=== PATIENT | male | born 1980 | race Asian ===

== ENCOUNTER → 2021-06-04 14:44 | Outpatient (CLI) | payer OTHER, MEDICAID, SELFPAY ==
--- NOTE | 2021-06-04 14:47 | DI.MRI.S_ITS ---
PROCEDURE: MR HEAD/BRAIN WO/W CON INDICATIONS: See's palsy TECHNIQUE: Noncontrast sagittal T1 spin echo, axial T2 fast spin echo, axial FLAIR, axial gradient echo, axial diffusion and ADC through the brain. Axial/sagittal/coronal 3-D CISS, thin-slice axial T1 spin echo with fat saturation through the skull base. After the administration of contrast, axial and coronal thin-slice T1 spin echo with fat saturation through the skull base, axial T1 spin echo with fat saturation through the brain. COMPARISON: None. FINDINGS: Image quality: Excellent. Cranial nerves: There is a roughly 3 mm diameter ovoid region enhancement within the lateral aspect of the right internal auditory canal. Additionally, there is a roughly 3 mm diameter focus of enhancement within the expected location of the labyrinthine segment as well as the geniculate ganglion on the right. Left internal auditory canal and facial nerve enhancement is within normal limits. CSF spaces: Ventricles are normal in size and shape. No extra-axial fluid collections. Basal cisterns are patent. Brain: No intracranial bleeds or mass effects. There are a few scattered punctate foci of elevated FLAIR signal within the subcortical white matter of the bilateral frontal and parietal lobes. No abnormal intracranial enhancement. Diffusion weighted images show no acute ischemic insults. Randle-white matter interface is intact. Brainstem is normal. Normal intravascular flow voids are present. Skull and face: Calvarial marrow signal is normal. Orbits appear normal. Sinuses: Sinuses and mastoids appear clear. IMPRESSION: 1. 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 Follow-up internal auditory canal MRI with and without intravenous contrast is recommended to exclude underlying neoplasm. 2. Mild degree of nonspecific white matter disease as described above. Differential considerations include early small vessel ischemic disease, diabetes mellitus, vasculitides, and demyelinating disorders, such as multiple sclerosis. Clinical correlation recommended. Dictated by: Sabra Joseph M.D. on 06/06/2021 at 8:51 Approved by: Sabra Joseph M.D. on 06/06/2021 at 8:55
== END ==
PROVIDERS: PCP Student in an Organized Health Care Education/Training Program; Referring Provider Student in an Organized Health Care Education/Training Program; Visit Provider Student in an Organized Health Care Education/Training Program
DX: G51.0 Bell's palsy (principal); H53.9 Unspecified visual disturbance
CPT/HCPCS: 70553; A9579

== ENCOUNTER → 2022-03-06 16:29 | Outpatient (CLI) | payer OTHER, MEDICAID, SELFPAY ==
[2022-03-06 18:52] LABS: Influenza A - CEPHEID Flu A NEGATIVE (NEGATIVE); Influenza B - CEPHEID Flu B NEGATIVE (NEGATIVE); Respiratory Syncytial Virus Negative (Negative)
[2022-03-06 18:56] LABS: COVID-19 CEPHEID 4-PLEX PCR Negative (Negative)
== END ==
PROVIDERS: PCP Student in an Organized Health Care Education/Training Program; Visit Provider Nurse Practitioner Family
DX: R05.9 Cough, unspecified (principal); Z20.822 Contact with and (suspected) exposure to COVID-19
CPT/HCPCS: 0241U

== ENCOUNTER → 2022-03-09 11:18 | Outpatient (CLI) | payer OTHER, MEDICAID, SELFPAY ==
--- NOTE | 2022-03-09 | DI.RAD.S_ITS ---
PROCEDURE: XR CHEST 2V INDICATIONS: acute URI, cough TECHNIQUE: 2 views of the chest were acquired. COMPARISON: None. FINDINGS: Surgical changes and devices: None. Lungs and pleura: Lungs are clear. No pleural effusions or pneumothorax. Mediastinum: Mediastinal contours are normal. Heart size is normal. Bones and chest wall: No suspicious bony abnormalities. Soft tissues appear unremarkable. IMPRESSION: No acute cardiopulmonary disease. Dictated by: Eulogio Meyer M.D. on 03/09/2022 at 16:20 Approved by: Eulogio Meyer M.D. on 03/09/2022 at 16:20
== END ==
PROVIDERS: PCP Internal Medicine; Referring Provider Registered Nurse; Visit Provider Registered Nurse
DX: J06.9 Acute upper respiratory infection, unspecified (principal); R05.1 Acute cough
CPT/HCPCS: 71046